=== PATIENT | female | born 1975 | race Caucasian/White ===

== ENCOUNTER 2019-01-25 16:34 | Emergency (ER) | payer OTHER ==
--- NOTE | 2019-01-25 16:40 | PDOC ---
Rapid Medical Evaluation Time Seen by Provider: 01/25/19 16:38 Medical Evaluation: 01/25/19 16:38 HPI: About 4 weeks with pelvic cramping and spotting x2 week s PE: No gross deficits ORDERS: labs and US Discharge Disposition - Diagnosis Threatened - Referrals - Patient Instructions - Post Discharge Activity
[2019-01-25 16:41] VITALS: BMI 25.4
[2019-01-25 17:18] LABS: URINE APPEARANCE CLOUDY; URINE BILIRUBIN NEGATIVE (NEGATIVE); URINE COLOR YELLOW; URINE GLUCOSE (UA) NEGATIVE (NEGATIVE); URINE KETONE NEGATIVE (NEGATIVE); URINE LEUK ESTERASE NEGATIVE (NEGATIVE); URINE NITRITE NEGATIVE (NEGATIVE); URINE PROTEIN NEGATIVE (NEGATIVE); URINE UROBILINOGEN 0.2 mg/dL (0.2-1.0)
[2019-01-25 17:20] LABS: BASO % 0.5 % (0-2.0); EOS % 0.6 % (0-4.5); HEMATOCRIT 42.9 % (32.4-45.2); HEMOGLOBIN 14.8 GM/dL (10.7-15.3); LYMPH % 26.5 % (8-40); MCH 31.4 pg (25.7-33.7); MCHC 34.4 g/dl (32.0-36.0); MEAN CELL VOLUME 91.3 fl (80-96); MEAN PLT VOLUME 8.1 fl (7.5-11.1); MONO % 6.4 % (3.8-10.2); PLATELET COUNT 281 K/MM3 (134-434); RDW 13.3 % (11.6-15.6); WHITE BLOOD COUNT 8.7 K/mm3 (4.0-10.0)
[2019-01-25 17:45] LABS: INR 1.08 (0.83-1.09); PROTHROMBIN TIME (PATIENT) 12.7 SEC (9.7-13.0)
--- NOTE | 2019-01-25 19:36 | PDOC ---
*Physical Exam - Vital Signs Last Vital Signs Temp Pulse Resp BP Pulse Ox 98.2 F 81 18 144/97 99 01/25/19 16:39 01/25/19 16:39 01/25/19 16:39 01/25/19 16:39 01/25/19 16:39 ED Treatment Course - LABORATORY CBC & Chemistry Diagram: 01/25/19 17:04 - ADDITIONAL ORDERS Additional order review: Laboratory Results 01/25/19 01/25/19 01/25/19 17:04 17:04 17:04 PT with INR 12.70 INR 1.08 Beta HCG, Quant Urine Color Yellow Urine Appearance Cloudy Urine pH 8.0 Ur Specific [place] 1.012 Urine Protein Negative Urine Glucose (UA) Negative Urine Ketones Negative Urine Blood Negative Urine Nitrite Negative Urine Bilirubin Negative Urine Urobilinogen 0.2 Ur Leukocyte Esterase Negative Urine HCG, Qual Blood Type A POSITIVE Antibody Screen Negative 01/25/19 01/25/19 17:04 17:04 PT with INR INR Beta HCG, Quant 49745.4 Urine Color Urine Appearance Urine pH Ur Specific [place] Urine Protein Urine Glucose (UA) Urine Ketones Urine Blood Urine Nitrite Urine Bilirubin Urine Urobilinogen Ur Leukocyte Esterase Urine HCG, Qual Positive Blood Type Antibody Screen 01/25/19 17:04 RBC 4.70 MCV 91.3 MCHC 34.4 RDW 13.3 MPV 8.1 Neutrophils % 66.0 Lymphocytes % 26.5 Monocytes % 6.4 Eosinophils % 0.6 Basophils % 0.5 Medical Decision Making - Medical Decision Making 01/25/19 19:35 Patient seen by the advanced practice provider under my direct supervision. Ancillary testing reviewed as necessary. I agree with plan as outlined by the advanced practice provider. *DC/Admit/Observation/Transfer Diagnosis at time of Disposition: Threatened - Referrals Referrals: Wing Stapleton [Primary Care Provider] - - Patient Instructions - Post Discharge Activity
--- NOTE | 2019-01-25 19:41 | PDOC ---
History of Present Illness - General Chief Complaint: Pain Stated Complaint: /CRAMPS Time Seen by Provider: 01/25/19 16:38 History Source: Patient - History of Present Illness Initial Comments: 01/25/19 20:03 43 year old female c/o pelvic pain and spotting yesterday. patient concerned since did not have a formal Financial Administrator visit yet. + nausea, denies abdominal pain, urinary symptoms, flank pain Past History - Past Medical History Allergies/Adverse Reactions: Allergies Allergy/AdvReac Type Severity Reaction Status Date / Time Penicillins Allergy Verified 01/25/19 16:41 Home Medications: Ambulatory Orders Doxylamine Succinate/Vit B6 [Dicarian Hernandez 10-10 mg Tablet] 1 each PO HS #14 tablet. 01/25/19 Miconazole Nitrate [Miconazole 1] 1 each VG BID #1 kit 01/25/19 COPD: No - Suicide/Smoking/Psychosocial Hx Smoking History: Never smoked Review of Systems - Review of Systems Able to Perform ROS?: Yes Is the patient limited [place] proficient: No Constitutional: No: Symptoms Reported, See HPI, Chills, Diaphoresis, Fever, Loss of Appetite, Malaise, Night Sweats, Weakness, Weight Stable, Unintentional Wgt. Loss, Unexplained wgt Loss, Other Respiratory: No: Symptoms reported, See HPI, Cough, Orthopnea, Shortness of Breath, SOB with Exertion, SOB at Rest, Stridor, Wheezing, Productive cough, Hemoptysis, Other ABD/GI: Yes: Nausea. No: Symptoms Reported, See HPI, Abdominal Distended, Abd. Pain w/ defecation, Blood Streaked Bowels, Constipated, Diarrhea, Difficulty Swallowing, Poor Appetite, Poor Fluid Intake, Rectal Bleeding, Vomiting, Indigestion, Abdominal cramping, Tarry Stools, Other : Yes: Other (vaginal bleeding, vaginal itching) *Physical Exam - Vital Signs Last Vital Signs Temp Pulse Resp BP Pulse Ox 98.2 F 81 18 144/97 99 01/25/19 16:39 01/25/19 16:39 01/25/19 16:39 01/25/19 16:39 01/25/19 16:39 - Physical Exam General Appearance: Yes: Appropriately Dressed Respiratory/Chest: positive: Lungs Clear, Normal Breath Sounds Cardiovascular: positive: Regular Rhythm, Regular Rate Female Pelvic Exam: positive: normal external exam ( first and then+ cottage cheese appearing vaginal discharge and vula erythema noted) Gastrointestinal/Abdominal: positive: Normal Bowel Sounds, Soft Musculoskeletal: positive: Normal Inspection Integumentary: positive: Normal Color, Dry, Warm Neurologic: positive: Fully Oriented, Alert, Normal Mood/Affect ED Treatment Course - LABORATORY CBC & Chemistry Diagram: 01/25/19 17:04 - ADDITIONAL ORDERS Additional order review: Laboratory Results 01/25/19 01/25/19 01/25/19 17:04 17:04 17:04 PT with INR 12.70 INR 1.08 Beta HCG, Quant Urine Color Yellow Urine Appearance Cloudy Urine pH 8.0 Ur Specific [place] 1.012 Urine Protein Negative Urine Glucose (UA) Negative Urine Ketones Negative Urine Blood Negative Urine Nitrite Negative Urine Bilirubin Negative Urine Urobilinogen 0.2 Ur Leukocyte Esterase Negative Urine HCG, Qual Blood Type A POSITIVE Antibody Screen Negative 01/25/19 01/25/19 17:04 17:04 PT with INR INR Beta HCG, Quant 17312.4 Urine Color Urine Appearance Urine pH Ur Specific [place] Urine Protein Urine Glucose (UA) Urine Ketones Urine Blood Urine Nitrite Urine Bilirubin Urine Urobilinogen Ur Leukocyte Esterase Urine HCG, Qual Positive Blood Type Antibody Screen 01/25/19 17:04 RBC 4.70 MCV 91.3 MCHC 34.4 RDW 13.3 MPV 8.1 Neutrophils % 66.0 Lymphocytes % 26.5 Monocytes % 6.4 Eosinophils % 0.6 Basophils % 0.5 Progress Note - Progress Note Progress Note: A: IUP; vaginal spotting; vulvovaginitis P: cbc beta hcg type and screen transvaginal US *DC/Admit/Observation/Transfer Diagnosis at time of Disposition: Threatened , Vaginitis and vulvovaginitis Normal IUP (intrauterine ) on ultrasound Qualifiers: Trimester: first trimester Qualified Code(s): Z34.91 - Encounter for supervision of normal , unspecified, first trimester - Discharge Dispostion Disposition: HOME - Prescriptions Prescriptions: Doxylamine Succinate/Vit B6 [Dandy Hernandez 10-10 mg Tablet] 1 each PO HS #14 tablet. Miconazole Nitrate [Miconazole 1] 1 each VG BID #1 kit - Referrals Referrals: Wing Stapleton [Primary Care Provider] - Yi Figueredo MD [Staff Physician] - - Patient Instructions Printed Discharge Instructions: DI for Vaginal Bleeding During Additional Instructions: return to the ER if you are soaking 2 pads per hour, severe abdominal pain, or worsening symptoms. - Post Discharge Activity Forms/Work/School Notes: Back to Work
[2019-01-25 20:43] VITALS: BP 120/86; PULSE 91; TEMP 98.8
== END 2019-01-25 20:43 | disposition home or self-care (01) ==
LOC: JER 16:34
DX: O26.891 Other specified pregnancy related conditions, first trimester (principal); Z3A.01 Less than 8 weeks gestation of pregnancy; O20.0 Threatened abortion
CPT/HCPCS: 36415; 76817-TC; 81003; 84702; 84703; 85025; 85610; 86850; 86900; 86901; 99282-25

== ENCOUNTER 2019-03-25 20:49 | Emergency (ER) | payer OTHER ==
[2019-03-25 21:00] VITALS: BMI 24.7
--- NOTE | 2019-03-25 21:00 | PDOC ---
Rapid Medical Evaluation Chief Complaint: Pain Time Seen by Provider: 03/25/19 20:51 Medical Evaluation: Allergies Allergy/AdvReac Type Severity Reaction Status Date / Time Penicillins Allergy Verified 01/25/19 16:41 03/25/19 20:51 I have performed a brief in-person evaluation of this patient. The patient presents with a chief complaint of: 15 weeks w/ 1 week of intermittent diffuse abdominal cramping. NO vaginal bleeding. Pt has care. (+)documented IUP. I have ordered the following: UA, Ucx, CBC, CBM, beta HCG, TVS The patient will proceed to the ED for further evaluation. Discharge Disposition - Diagnosis Abdominal pain affecting - Referrals - Patient Instructions - Post Discharge Activity
[2019-03-25 21:23] LABS: BASO % 0.2 % (0-2.0); EOS % 1.3 % (0-4.5); HEMATOCRIT 39.2 % (32.4-45.2); HEMOGLOBIN 13.3 GM/dL (10.7-15.3); MCH 31.2 pg (25.7-33.7); MEAN CELL VOLUME 91.7 fl (80-96); MEAN PLT VOLUME 8.4 fl (7.5-11.1); MONO % 6.5 % (3.8-10.2); PLATELET COUNT 255 K/MM3 (134-434); RBC 4.27 M/mm3 (3.60-5.2); WHITE BLOOD COUNT 9.9 K/mm3 (4.0-10.0)
[2019-03-25 21:24] LABS: URINE APPEARANCE CLEAR; URINE BILIRUBIN NEGATIVE (NEGATIVE); URINE COLOR YELLOW; URINE GLUCOSE (UA) NEGATIVE (NEGATIVE); URINE KETONE NEGATIVE (NEGATIVE); URINE LEUK ESTERASE NEGATIVE (NEGATIVE); URINE NITRITE NEGATIVE (NEGATIVE); URINE PROTEIN NEGATIVE (NEGATIVE); URINE UROBILINOGEN 0.2 mg/dL (0.2-1.0)
[2019-03-25 21:58] LABS: ALBUMIN 3.5 g/dl (3.4-5.0); BILIRUBIN,TOTAL 0.2 mg/dL (0.2-1); BLOOD UREA NITROGEN 6.8 mg/dL (7-18); CALCIUM 9.1 mg/dL (8.5-10.1); CREATININE 0.5 mg/dL (0.55-1.3); POTASSIUM 3.8 mmol/L (3.5-5.1); TOT PROT 7.2 g/dl (6.4-8.2)
--- NOTE | 2019-03-25 22:17 | PDOC ---
History of Present Illness - General Chief Complaint: Pain Stated Complaint: 15/WKS /ABD PAIN Time Seen by Provider: 03/25/19 20:51 History Source: Patient Exam Limitations: No Limitations - History of Present Illness Initial Comments: 03/25/19 22:17 43YOF who is and roughly 15 weeks by LMP and US who has been having intermittent mild-moderate lower abdominal cramping for the past week. She describes the pain as twinges of cramping which migrates from the left lower abdomen to right lower abdomen and occasionally the suprapubic region, come on once every hour or so. She denies any vaginal bleeding or discharge, f/c /n/v/d/c, hematuria, dysuria, or other symptoms. No recent falls/injuries. She does follow with an COMPUTATIONAL SCIENTIST and has been through an US already, states she was told everything is normal. Past History - Past Medical History Allergies/Adverse Reactions: Allergies Allergy/AdvReac Type Severity Reaction Status Date / Time Penicillins Allergy Verified 03/25/19 20:56 Home Medications: Ambulatory Orders NK [No Known Home Medication] 03/25/19 COPD: No - Reproductive History Is Patient Now?: Yes Therapeutic (s) & number: No - Psycho Social/Smoking Cessation Hx Smoking History: Never smoked Review of Systems - Review of Systems Able to Perform ROS?: Yes Comments:: GEN: no fever, chills, night sweats, generalized weakness, malaise, or unintentional weight change HEENT: no ear pain, congestion, sore throat, rhinorrhea, nosebleed, vision change, or eye pain CV: no chest pain, palpitations, lightheadedness, syncope, edema, or exercise intolerance RESP: no cough, wheezing, or SOB GI: abdominal cramping, no nausea, vomiting, diarrhea, constipation, appetite change, or white/black/bloody stool : no dysuria, hematuria, frequency, incontinence, retention, pruritis, bleeding, or discharge MSK: no muscle weakness or pain, no muscle wasting, no joint swelling or pain NEURO: no headache, seizure, vertigo, imbalance, numbness, tingling, focal weakness, or difficulty walking/talking PSYCH: no insomnia, behavior change, SI, HI, or substance use SKIN: no prutitis, excessive dryness, jaundice, rash, cuts, or unexplained bruises ROS otherwise negative except as noted in HPI *Physical Exam - Vital Signs Last Vital Signs Temp Pulse Resp BP Pulse Ox 98.4 F 110 H 18 124/83 100 03/25/19 20:51 03/25/19 20:51 03/25/19 20:51 03/25/19 20:51 03/25/19 20:51 - Physical Exam Comments: 03/25/19 22:24 GENERAL: well-appearing, A/Ox4, no distress, answers questions appropriately HEENT: PERRLA, EOMI, moist mucous membranes NECK/BACK: no midline ttp, no spinal stepoff or deformity, no hematoma, full ROM , neck supple CARDIOVASCULAR: regular rate/rhythm, normal S1S2, no MGR, strong peripheral pulses, capillary refill <2 seconds, extremities wwp, no edema LUNGS/RESPIRATORY: no respiratory distress, CTAB GI/ABDOMEN: gravid, symmetric [id number], normoactive BS, soft, mimimal diffuse lower abdominal ttp, no midline pulsatile masses : no CVA tenderness EXTREMITIES: no muscle atrophy, no acute deformity SKIN: warm and dry, no pallor, no jaundice, no rash, no bruising, no skin breakdown, no cuts, no lesions NEUROLOGICAL: GCS 15, CN II-XII grossly intact, 5/5 strength proximally and distally, no facial droop ED Treatment Course - LABORATORY CBC & Chemistry Diagram: 03/25/19 21:08 03/25/19 21:08 - ADDITIONAL ORDERS Additional order review: Laboratory Results 03/25/19 03/25/19 21:10 21:08 Sodium 140 Potassium 3.8 Chloride 106 Carbon Dioxide 25 Anion Gap 8 BUN 6.8 L Creatinine 0.5 L Est GFR (CKD-EPI)AfAm 139.33 Est GFR (CKD-EPI)NonAf 120.22 Random Glucose 70 L Calcium 9.1 Total Bilirubin 0.2 AST 12 L ALT 20 Alkaline Phosphatase 73 Total Protein 7.2 Albumin 3.5 Beta HCG, Quant 99766.7 Urine Color Yellow Urine Appearance Clear Urine pH 6.0 D Ur Specific [place] 1.007 L Urine Protein Negative Urine Glucose (UA) Negative Urine Ketones Negative Urine Blood Negative Urine Nitrite Negative Urine Bilirubin Negative Urine Urobilinogen 0.2 Ur Leukocyte Esterase Negative 03/25/19 21:08 RBC 4.27 MCV 91.7 MCHC 34.0 RDW 14.0 MPV 8.4 Neutrophils % 71.0 Lymphocytes % 21.0 D Monocytes % 6.5 Eosinophils % 1.3 D Basophils % 0.2 Medical Decision Making - Medical Decision Making 03/25/19 22:19 43YOF p/w vaginal bleeding and lower abdominal pain at ~15 wks gestation. Initial Vital Signs Temp Pulse Resp BP Pulse Ox 98.4 F 110 H 18 124/83 100 03/25/19 20:51 03/25/19 20:51 03/25/19 20:51 03/25/19 20:51 03/25/19 20:51 Exam: As noted in Physical Exam section. DDX IBNLT: Most likely this is round ligament discomfort as natural course of . The pain is diffuse and not unilateral, low risk of ovarian torsion. The patient is not bleeding and is not in 3rd trimester and pain is intermittent so low risk of abruption. Unlikely ectopic as the patient has been told she has normal IUP already this however will check TVUS. Unlikely UTI without dysuria but will check UA. Unlikely appendicitis, colitis, or any other more serious etiology given lack of additional symptoms. W/U ordered: Labs as noted below, TVUS. TX ordered: Tylenol Laboratory Tests 03/25/19 03/25/19 03/25/19 21:08 21:08 21:10 WBC 9.9 RBC 4.27 Hgb 13.3 Hct 39.2 MCV 91.7 MCH 31.2 MCHC 34.0 RDW 14.0 Plt Count 255 MPV 8.4 Absolute Neuts (auto) 7.0 Neutrophils % 71.0 Lymphocytes % 21.0 D Monocytes % 6.5 Eosinophils % 1.3 D Basophils % 0.2 Nucleated RBC % 0 Sodium 140 Potassium 3.8 Chloride 106 Carbon Dioxide 25 Anion Gap 8 BUN 6.8 L Creatinine 0.5 L Est GFR (CKD-EPI)AfAm 139.33 Est GFR (CKD-EPI)NonAf 120.22 Random Glucose 70 L Calcium 9.1 Total Bilirubin 0.2 AST 12 L ALT 20 Alkaline Phosphatase 73 Total Protein 7.2 Albumin 3.5 Beta HCG, Quant 48505.7 Urine Color Yellow Urine Appearance Clear Urine pH 6.0 D Ur Specific [place] 1.007 L Urine Protein Negative Urine Glucose (UA) Negative Urine Ketones Negative Urine Blood Negative Urine Nitrite Negative Urine Bilirubin Negative Urine Urobilinogen 0.2 Ur Leukocyte Esterase Negative TYPE/EXAM: RESULT: [id number] US/ <14WKS US Obstetrical ultrasound Clinical information: abdominal pain in , 15 weeks The exam demonstrates a single viable intrauterine gestation at approximately 15 weeks 6 days. cardiac rate 161 BPM. Anterior placenta. the inferior placental edge appears low lying at this time approximately 2 cm from the internal cervical os. The cervix appears closed measuring 4 cm in length. The partially visualized structures demonstrate no gross sonographic abnormality. Amniotic fluid volume appears unremarkable. A 1.3 cm probable leiomyoma described on a previous exam of 01/25/2019 within the uterine body cannot be appreciated on the current exam. The ovaries could not be definitely visualized. No free intraperitoneal fluid is seen within the visualized lower pelvis. Impression: Single viable intrauterine gestation at approximately 15 weeks 6 days. Low-lying anterior placenta (2 cm from the internal cervical os). Workup is not concerning for emergency-level pathology at this time. The Pt is appropriate for discharge home w/ close outpatient f/u. The Pt is comfortable with this plan and will follow up with their primary care provider in 1-3 days. She will also follow up with her COMPUTATIONAL SCIENTIST in 1-3 days. She will take primarily Tylenol for pain. Specific return precautions are discussed and they will come back to the ER if necessary. Discharge - Discharge Information Problems reviewed: Yes Clinical Impression/Diagnosis: Abdominal pain affecting Condition: Stable Disposition: HOME - Admission No - Follow up/Referral Referrals: Wing Stapleton [Primary Care Provider] - - Patient Discharge Instructions Patient Printed Discharge Instructions: DI for Abdominal Pain -- Early Additional Instructions: You were seen in the ER for lower abdominal pain in . We did an exam, laboratory work on your blood and urine, and an ultrasound. After our assessment , we do not think you are having a medical emergency at this time, and you are safe to go home. Please take tylenol for any mild-moderate pain. Follow up with your wood block artist and primary care provider in the next 1-3 days. Call their clinic [facility], tell them you were seen in the ER, and tell them you need an appointment. Please come back to the ER at any time (24 hours a day) for any new or worsening symptoms, like worsening pelvic pain, discharge, high fever, headache, seizure, fainting, anemia, large amount of blood loss, or other symptoms. If you are having severe or life threatening symptoms, or symptoms that make it unsafe to drive or have someone drive you, please call 911. Here is the official result of your ultrasound: The exam demonstrates a single viable intrauterine gestation at approximately 15 weeks 6 days. cardiac rate 161 BPM. Anterior placenta. the inferior placental edge appears low lying at this time approximately 2 cm from the internal cervical os. The cervix appears closed measuring 4 cm in length. The partially visualized structures demonstrate no gross sonographic abnormality. Amniotic fluid volume appears unremarkable. A 1.3 cm probable leiomyoma described on a previous exam of 01/25/2019 within the uterine body cannot be appreciated on the current exam. The ovaries could not be definitely visualized. No free intraperitoneal fluid is seen within the visualized lower pelvis. Impression: Single viable intrauterine gestation at approximately 15 weeks 6 days. Low-lying anterior placenta (2 cm from the internal cervical os). - Post Discharge Activity
--- NOTE | 2019-03-25 22:35 | PDOC ---
Attending Attestation - Resident Resident Name: Katherine Kirkpatrick - ED Attending Attestation I have performed the following: I have examined & evaluated the patient, The case was reviewed & discussed with the resident, I agree w/resident's findings & plan - HPI HPI: 03/26/19 00:31 Pt comes with lower abdominal pain; no vag bleed and no dysuria; however she is 15 weeks . She has no other complaints. - Physicial Exam PE: 03/26/19 00:32 Agree with resident exam. No rebound and no guarding and no flank pain Pt has normal FH on bedside ultrasound. - Medical Decision Making 03/26/19 00:32 Pt has normal labs and normal UA and she will be discharged home and asked to follow with her CHARTER COACH DRIVER next week. Pt will be asked to return or seek sooner follwup if she has any vaginal spotting or bleeding.
[2019-03-25 22:50] VITALS: BP 116/74; PULSE 89; TEMP 98.1
== END 2019-03-25 22:50 | disposition home or self-care (01) ==
LOC: JER 20:49
DX: O26.892 Other specified pregnancy related conditions, second trimester (principal); Z3A.14 14 weeks gestation of pregnancy; R10.9 Unspecified abdominal pain
CPT/HCPCS: 36415; 76801-TC; 80053; 81003; 84702; 85025; 87086; 99283-25